=== PATIENT | female | born 1965 | race Caucasian/White ===

== ENCOUNTER → 2016-11-11 | Outpatient (CLI) | payer OTHER ==
--- NOTE | 2016-11-11 16:43 | WWHP ---
DATE OF DICTATION: 11/11/2016 CHIEF COMPLAINT: The patient is here for her routine gynecologic exam. HISTORY OF PRESENT ILLNESS: This is a 51-year-old G1, P1 with an LMP of 10/07/16. She states she is not sexually active. She does have some hot flashes. She is status post lumpectomy and radiation treatment for breast cancer and is now on tamoxifen. She states her hot flashes have become slightly less intense but more frequent with tamoxifen. She is otherwise without complaints. Periods are regular. PAST MEDICAL HISTORY: 1. Left breast cancer diagnosed in 2015, status post lumpectomy and radiation treatment. 2. History of anxiety. 3. Gastroesophageal reflux disease. 4. Rosacea. 5. Anemia. MEDICATIONS: 1. Tamoxifen 20 mg daily. 2. Prevacid 1 daily. 3. MetroCream daily. 4. Black cohosh daily. 5. Ferrous sulfate 325 mg daily. 6. Multivitamin daily. 7. Vitamin D 1000 units daily. 8. Vitamin C supplement daily. ALLERGIES: PENICILLIN and CEPHALOSPORINS, both of which caused hives. PAST SURGICAL HISTORY: 1. Hemorrhoidectomy in 2013. 2. Colonoscopy in 2012. 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 Periods are regular every month. SOCIAL HISTORY: She denies tobacco, alcohol and drug use. She has been since her 20s. She states she is seeing somebody at this time but is not sexually active. 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 FAMILY HISTORY: Unchanged from the 2015 H&P. REVIEW OF SYSTEMS: She has lost about 7 pounds over the last year. She denies respiratory, cardiac or GI problems. PHYSICAL EXAM: Blood pressure 103/62. Height 5 feet 2 inches. Weight 133 pounds. Temperature 97.9. Pulse 65. This is a well-developed, well-nourished white female alert and oriented x3, in no acute distress. HEENT is within normal limits. NECK: Supple without mass or thyromegaly. CHEST AND LUNGS: Clear to auscultation. HEART: Regular rate and rhythm. Breasts are without mass or discharge. The left breast is consistent with a left lumpectomy in the upper aspect of the breast. Axillary exam is negative for adenopathy. BACK: Negative for CVA tenderness. ABDOMEN: Soft, nontender, without palpable masses. PELVIC EXAM: Normal external genitalia. Cervix and vagina appear normal. There is no evidence of prolapse. The uterus is midposition, nongravid size and nontender. There are no palpable adnexal masses or tenderness. Rectovaginal exam is negative for mass or tenderness and is negative for occult blood. EXTREMITIES: Nontender. IMPRESSION: 1. A 51-year-old premenopausal female with history of left breast cancer. 2. Normal gynecologic exam. PLAN: 1. Pap smear was deferred, since she had a normal one less than 2 years ago. 2. Self breast examination was discussed. 3. Mammogram will be due in 02/01, and this is done at [facility] in [place]. She does get her order forms for this from her oncologist. 4. We discussed tamoxifen use and the increased risk for uterine cancer. I have stressed importance of notifying me if she is having abnormal bleeding, including intermenstrual bleeding, menstrual cycles of less than 3 weeks and bleeding after 12 months of amenorrhea. 5. Osteoporosis prevention was discussed. 6. She will return in one year.

== ENCOUNTER → 2018-06-22 | Day surgery (SDC) | payer OTHER ==
[2018-06-22 09:25] VITALS: BP 129/66; PULSE 70; TEMP 97.7; BMI 25.6
--- NOTE | 2018-06-22 10:13 | P.PCN ---
Date of Procedure: 06/22/18 Preoperative Diagnosis: Endometrial cells on Pap smear Postoperative Diagnosis: Same Procedure(s) Performed: Endometrial biopsy Anesthesia: none Surgeon: Garo Goldsmith Estimated Blood Loss (ml): 1 Pathology: other (Endometrial tissue) Condition: stable Disposition: same day Indications for Procedure: This was a 52-year-old perimenopausal female who has been having menses every 1 to 4 months during the past year. Her LMP was February 2018. Her Pap smear done last week was negative, but showed endometrial cells. Because of the endometrial cells, the decision was made to proceed with endometrial biopsy. Operative Findings: The cervix appears normal. The uterus sounded to 8 cm. Small tissue was obtained. Description of Procedure: The endometrial biopsy procedure was described to the patient. All of her questions were answered. The patient was placed in the lithotomy position. Bimanual examination was performed. The uterus is mid-positioned and is non- gravid size. The speculum was inserted and the cervix and vagina were prepped with betadine solution. In Allys Clamp was used to grasp the anterior lip of the cervix. The 3mm endometrial biopsy curette was placed to the fundus without difficulty. The uterus sounded to 8 cm. A [id number] rotating motion was used and a small amount of tissue was obtained. The procedure was repeated once and a small amount of tissue was again obtained. The tissue was sent for pathologic examination. The patient tolerated the procedure well. There were no complications. The post procedure vitals are as follows: blood pressure 135/ 62. pulse 52, temperature 6.4. Post procedure instructions were given to the patient.
--- NOTE | 2018-06-28 12:00 | P.PN ---
Progress Note - Text Progress Note Date: 06/28/18 OUTPATIENT FOLLOW-UP NOTE TEST(S)/RESULTS: endometrial biopsy done on 06/22/2018 was benign with no atypia identified. METHOD OF NOTIFICATION: the patient was notified by phone. PATIENT COMMENTS: the patient understands the results. DIAGNOSIS: endometrial cells on Pap smear with benign endometrial biopsy. Probable perimenopause. DISCUSSION: PLAN: the patient will keep a menstrual calendar. Call if she is having menstrual problems or if bleeding after one year of amenorrhea. She will return in one year and PRN.
== END ==
LOC: WWCWWP 09:02
PROVIDERS: ATTEND Obstetrics & Gynecology
DX: Z53.9 Procedure and treatment not carried out, unspecified reason (principal)
CPT/HCPCS: 88305

== ENCOUNTER → 2019-09-05 | Outpatient (CLI) | payer OTHER ==
[2019-09-05 14:56] VITALS: BP 126/76; PULSE 66; RESP 18; TEMP 98.2; BMI 26.6
--- NOTE | 2019-09-05 15:32 | P.HPOB ---
History of Present Illness H&P Date: 09/05/19 Chief Complaint: The patient is here for her routine gynecologic exam. This is a 54-year-old with an LMP of February 2018. The patient is without gynecologic complaints and denies any postmenopausal bleeding. She continues to take tamoxifen because of her history of breast cancer. Review of Systems The patient has gained 4 pounds over the last year. She denies respiratory, cardiac, or G.I. problems. Past Medical History Past Medical History: Cancer, GERD/Reflux Additional Past Medical History / Comment(s): Left breast cancer status post lumpectomy and radiation treatment in 2016. Rosacea and anemia. 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 History of Any Multi-Drug Resistant Organisms: None Reported Past Surgical History: Breast Surgery Additional Past Surgical History / Comment(s): Left lumpectomy 2015. hemorroidectomy x2. Colonoscopy 2012(next after 10yrs). Past Psychological History: Anxiety Smoking Status: Never smoker Past Alcohol Use History: None Reported Past Drug Use History: None Reported Additional History: She recently a female in 2017. This is her second marriage. 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 - Past Family History Father Family Medical History: Myocardial Infarction ([place]) Mother Family Medical History: Cancer Additional Family Medical History / Comment(s): Lung cancer. Maternal grandmother had diabetes Brother(s) Family Medical History: Myocardial Infarction ([place]) Medications and Allergies Home Medications Medication Instructions Recorded Confirmed Type Lansoprazole [Prevacid] 30 mg PO DAILY 06/07/18 09/05/19 History Multivitamin [Multivitamins Adult 1 tab PO DAILY 06/07/18 09/05/19 History Gummies] Tamoxifen [Nolvadex] 10 mg PO DAILY 06/07/18 09/05/19 History metroNIDAZOLE 0.75% CREAM 1 applic TOPICAL DAILY 09/05/19 09/05/19 History [Metrocream] Allergies Allergy/AdvReac Type Severity Reaction Status Date / Time cephalexin Allergy Rash/Hives Verified 09/05/19 14:50 Penicillins Allergy Rash/Hives Verified 09/05/19 14:50 Exam Vital Signs Temp Pulse Resp BP Pulse Ox 09/05/19 14:53 98.2 F 66 18 126/76 98 Intake and Output 09/05/19 09/05/1919 06:59 14:59 22:59 Other: Weight 66.224 kg Height 5 feet 2 inches, weight 146 pounds, BMI 26.7. This is a well-developed well-nourished white female who is alert and oriented times 3 in no acute distress. HEENT: Within normal limits. NECK: Supple without mass or thyromegaly. CHEST AND LUNGS: Clear to auscultation. HEART: Regular rate and rhythm. BREASTS: Are without mass or discharge. Left breast is consistent with previous lumpectomy in the upper breast. AXILLARY EXAM: Negative for adenopathy. BACK: Negative for CVA tenderness. ABDOMEN: Soft, nontender, without palpable masses. PELVIC EXAM: Normal external genitalia with minimal atrophy. Cervix and vagina appear normal minimal atrophy. There is no unusual discharge. There is no evidence of prolapse. The uterus is midposition, nongravid size and nontender. There are no palpable adnexal masses or tenderness. RECTAL EXAM: Rectovaginal exam is negative for mass or tenderness and is negative for occult blood. EXTREMITIES: Nontender. IMPRESSION: 1. 54-year-old menopausal female with normal gynecologic exam. 2. History of left breast cancer status post lumpectomy and radiation treatment with no evidence of recurrence at this time. PLAN: 1. Pap smear was deferred since she had a negative Pap smear on 06/07/2018. 2. Self breast awareness was discussed with the patient. 3. Mammograms will be done at [facility] as she has done in the past. Her last one was in February of this year. She states she is not doing them yearly . She will try to have her previous mammogram report sent to me. I have also requested that she have copies of her future mammograms sent to me as well. 4. We discussed how tamoxifen and can slightly increase the risk for endometrial cancer. She was instructed to call if she has any vaginal bleeding. 5. Osteoporosis prevention was discussed. I have stressed the importance of adequate calcium, vitamin D and regular exercise. Recommended amounts of calcium and vitamin D were also discussed. 6. She was advised to return in one year for her annual well woman exam.
== END ==
LOC: WWCWWP 14:24
PROVIDERS: ATTEND Obstetrics & Gynecology
DX: Z53.9 Procedure and treatment not carried out, unspecified reason (principal)

== ENCOUNTER 2021-04-08 09:30 | Day surgery (SDC) | payer OTHER ==
[2021-04-04 10:00] VITALS: BMI 26.5
[~2021-04-08 09:30] MED LIST: LACTATED RINGERS 1,000 ML IV SCH
[2021-04-08] MEDS ORDERED: LIDOCAINE 1% (10MG/ML) FOR IV START INTRADERMA ONE (09:50)
[2021-04-08] MEDS ORDERED: MIDAZOLAM 2 MG/2 ML VIAL ONE (09:55)
[2021-04-08] MEDS ORDERED: PROPOFOL 10 MG/ML 20 ML VIAL IV ONE (09:55)
[2021-04-08] MEDS ORDERED: fentaNYL (PF) 50 MCG/ML 2 ML AMP ONE (09:55)
[2021-04-08] MEDS ORDERED: LIDOCAINE 1% INJ 10MG/ML (20 ML MDV) ONE (09:55)
[2021-04-08 09:57] VITALS: RESP 16; TEMP 98.4
--- NOTE | 2021-04-08 10:18 | P.PCN ---
Date of Procedure: 04/08/21 Description of Procedure: BRIEF HISTORY: Patient is a 55-year-old female presenting for esophagogastroduodenoscopy for evaluation of dysphagia. Patient reports both solid food and liquid dysphagia occurring intermittently. She also reports coughing with laughing. She reports a long-standing history of reflux disease is on Prevacid. She denies any breakthrough symptoms reports she will have reflux if she misses doses of her medication. PROCEDURE PERFORMED: Esophagogastroduodenoscopy with biopsy. PREOPERATIVE DIAGNOSIS: Dysphagia, esophageal dysphagia, heartburn. ESTIMATED BLOOD LOSS: Minimal. IV sedation per anesthesia. PROCEDURE: After informed consent was obtained, the patient was brought into the endoscopy unit. IV sedation was administered by Anesthesia under continuous monitoring. Initially the Olympus GIF-190 video endoscope was inserted into the mouth. Esophagus intubated without any difficulty. It was gradually advanced into the stomach and duodenum and carefully examined. The bulb and the second part of the duodenum appeared normal, with biopsies taken. The scope at this time was withdrawn to the stomach, adequately insufflated with air, and upon careful examination, mucosa of the antrum, body, cardia and the fundus appeared normal, except for some mild scattered erythema in the antrum and body suggestive of mild gastritis of biopsies taken. There were also multiple gastric polyps in the body of the stomach which appeared to be fundic gland polyps which were biopsied. The scope was then withdrawn into the esophagus. The GE junction was located at 36 cm from the incisors. The esophagus appeared normal, with biopsies taken of the lower esophagus and midesophagus. There were no erosions or ulcerations seen and the patient tolerated the procedure well. IMPRESSION: 1. Mild gastritis. 2. Multiple gastric polyps (appeared to be fundic gland polyps). 3. No esophageal stricture, ulceration or other abnormalities noted. 4. Biopsies of the duodenum, antrum and body, gastric polyps, lower esophagus and midesophagus. RECOMMENDATIONS: The findings of this examination were discussed with the patient and her family. Okay to resume diet. Okay to resume medications. Await pathology from biopsies. Continue current medical management.
[2021-04-08 10:29] VITALS: PULSE 66
[2021-04-08 10:48] VITALS: BP 113/76
== END 2021-04-08 11:01 | disposition home or self-care (01) ==
LOC: ORWHC2ENDO 09:30
PROVIDERS: ATTEND Internal Medicine
DX: D72.820 Lymphocytosis (symptomatic) (principal); K29.50 Unspecified chronic gastritis without bleeding; K31.7 Polyp of stomach and duodenum; R13.14 Dysphagia, pharyngoesophageal phase; K21.9 Gastro-esophageal reflux disease without esophagitis; Z98.890 Other specified postprocedural states; Z85.3 Personal history of malignant neoplasm of breast; Z79.899 Other long term (current) drug therapy; Z88.1 Allergy status to other antibiotic agents; Z88.0 Allergy status to penicillin
CPT/HCPCS: 88305; 43239; J2250; J2001; J3010; J2704

== ENCOUNTER → 2021-04-22 | Outpatient (CLI) | payer OTHER ==
[2021-04-22 16:01] VITALS: BP 123/81; PULSE 89; RESP 18; TEMP 98.2
--- NOTE | 2021-04-22 17:05 | P.HPOB ---
History of Present Illness H&P Date: 04/22/21 Chief Complaint: The patient is here for her routine gynecologic exam. This is a 55-year-old with an LMP of October 2019. The patient denies any postmenopausal bleeding. She has recently discontinued tamoxifen after 5 years of use for breast cancer. She does have mild hot flashes which are not very bothersome. Review of Systems The patient has gained 10 pounds over the last 1-1/2 years. She denies respiratory, cardiac, or G.I. problems. Past Medical History Past Medical History: Cancer, GERD/Reflux Additional Past Medical History / Comment(s): Left breast cancer status post lumpectomy and radiation treatment in 2016. Rosacea and anemia. 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 History of Any Multi-Drug Resistant Organisms: None Reported Past Surgical History: Breast Surgery Additional Past Surgical History / Comment(s): Left lumpectomy 2015. hemorroidectomy x2. Colonoscopy 2012(next after 10yrs). Upper Endoscopy. Past Anesthesia/Blood Transfusion Reactions: No Reported Reaction Past Psychological History: Anxiety Smoking Status: Never smoker Past Alcohol Use History: None Reported Past Drug Use History: None Reported Additional History: She is to her female spouse since 2017 and this is her second marriage. 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 - Past Family History Father Family Medical History: Myocardial Infarction ([place]) Mother Family Medical History: Cancer Additional Family Medical History / Comment(s): Lung cancer. Maternal grandmother had diabetes Brother(s) Family Medical History: Myocardial Infarction ([place]) Medications and Allergies Home Medications Medication Instructions Recorded Confirmed Type Lansoprazole [Prevacid] 30 mg PO DAILY 06/07/18 04/22/21 History metroNIDAZOLE 0.75% CREAM 1 applic TOPICAL DAILY 09/05/19 04/22/21 History [Metrocream] Allergies Allergy/AdvReac Type Severity Reaction Status Date / Time cephalexin Allergy Rash/Hives Verified 04/22/21 15:57 clindamycin Allergy Rash/Hives Unverified 04/22/21 15:57 levofloxacin [From Levaquin] Allergy Rash/Hives Verified 04/22/21 15:57 Penicillins Allergy Rash/Hives Verified 04/22/21 15:57 Exam Vital Signs Temp Pulse Resp BP Pulse Ox 04/22/21 15:58 98.2 F 89 18 123/81 97 Intake and Output 04/22/21 04/22/21 04/22/21 06:59 14:59 22:59 Other: Weight 70.76 kg Height 5 feet 2 inches, weight 156 pounds, BMI 28.5. This is a well-developed well-nourished white female who is alert and oriented times 3 in no acute distress. HEENT: Within normal limits. NECK: Supple without mass or thyromegaly. CHEST AND LUNGS: Clear to auscultation. HEART: Regular rate and rhythm. BREASTS: Are without mass or discharge. The upper left breast is consistent with previous lumpectomy. AXILLARY EXAM: Negative for adenopathy. BACK: Negative for CVA tenderness. ABDOMEN: Soft, nontender, without palpable masses. PELVIC EXAM: Normal external genitalia with mild atrophy. Cervix and vagina appear normal mild atrophy. There is no unusual discharge. There is no evidence of prolapse. The uterus is midposition, nongravid size and nontender. There are no palpable adnexal masses or tenderness. RECTAL EXAM: Rectovaginal exam is negative for mass or tenderness and is negative for occult blood. EXTREMITIES: Nontender. IMPRESSION: 1. 55-year-old postmenopausal female with normal gynecologic exam. 2. History of left breast cancer status post lumpectomy and radiation treatment with no evidence of recurrence at this time. PLAN: 1. Pap smear cotest was performed. 2. Self breast awareness was discussed with the patient. 3. Mammogram was done at [facility] in [place] in March 2021 and was was benign per the patient. She is considering starting to do the mammograms at this hospital. 4. Osteoporosis prevention was discussed. I have stressed the importance of adequate calcium, vitamin D and regular exercise. Recommended amounts of calcium and vitamin D were also discussed. 5. She was advised to return in one year for her annual well woman exam.
== END ==
LOC: WWCWWP 15:50
PROVIDERS: ATTEND Obstetrics & Gynecology
DX: Z01.419 Encounter for gynecological examination (general) (routine) without abnormal findings (principal); Z85.3 Personal history of malignant neoplasm of breast; Z98.890 Other specified postprocedural states; F41.9 Anxiety disorder, unspecified; Z92.3 Personal history of irradiation; Z88.1 Allergy status to other antibiotic agents; Z83.3 Family history of diabetes mellitus

== ENCOUNTER → 2021-07-02 | Outpatient (CLI) | payer OTHER ==
[2021-07-02 11:11] VITALS: BP 131/76; PULSE 52; RESP 16; TEMP 98.1
--- NOTE | 2021-07-02 12:07 | P.PN ---
Progress Note - Text Progress Note Date: 07/02/21 Chief Complaint: Vaginal bleeding 2 days. HPI: This is a 55-year-old with an LNMP of October 2019. She had been on tamoxifen for breast cancer for 5 years and this was discontinued about 6 months ago. She had a previous endometrial biopsy on 06/22/2018 following some endometrial cells on her Pap smear and this was benign. Two days ago, she noticed blood in her underwear and in the toilet after urinating. Since then she has been having period-like bleeding which requires a pad and she has been changing her pad about every 2 hours. She has had some cramping which she typically would get when her bladder is full in the middle of the night, but she has been noticing it now when her bladder gets full during the day. ROS: : As above. She has been having some cramping when her bladder gets full and she has been noticing this more often during the past 2 days. She denies ot her urinary tract infection symptoms. The rest of the review of systems is unremarkable. PE: Blood pressure: 131/76, Height: 5 feet 2 inches, Weight: 154 pounds, Temperature: 98.1, Pulse: 52. Pulse oximeter 100%. This is a well developed, well nourished, white female who is alert and orientedx3, in no acute distress. External genitalia reveals dried blood. The vulva appears mildly atrophic w ithout lesions. Vagina: There is menstrual type blood in the vagina. The cervix appears normal. There are no lacerations noted. There is no cervical motion tenderness. The uterus is mid positioned, nongravid size, and nontender. There are no palpable adnexal masses or tenderness. See procedure note. Impression: 1. 55-year-old postmenopausal female with postmenopausal vaginal bleeding. Thi s may or may not be related to the tamoxifen use which she used for 5 years up until 6 months ago. Differential diagnosis will include benign proliferative lining, uterine polyp, endometrial hyperplasia with or without atypia as well as endometrial cancer. Plan: 1. Endometrial biopsy was performed today. 2. Consider referral if cancer or hyperplasia with atypia, or if persistent or recurrent bleeding. Time spent with the patient: 30 minutes
--- NOTE | 2021-07-02 12:12 | P.PCN ---
Date of Procedure: 07/02/21 Preoperative Diagnosis: Puzzle bleeding. Postoperative Diagnosis: Postmenopausal bleeding Procedure(s) Performed: Endometrial biopsy Anesthesia: none Surgeon: Garo Goldsmith Estimated Blood Loss (ml): 1 Pathology: other (Endometrial tissue) Condition: stable Disposition: same day Indications for Procedure: This was a 55-year-old menopausal female with LMP of October 2019. The patient developed vaginal bleeding 2 days ago and has had menstrual-like bleeding since then. See today's progress note for additional details. Operative Findings: The uterus sounded to 8 cm. Small to moderate amount of bloody tissue was obtained and sent for pathological examination. Description of Procedure: The endometrial biopsy procedure was described to the patient. All of her questions were answered. The patient was placed in the lithotomy position. Bimanual examination was performed. The uterus is mid positioned and is gravid size. The speculum was inserted and the cervix and vagina were prepped with betadine solution. An Allis clamp was used to grasp the anterior lip of the cervix. The 3mm endometrial biopsy curette was placed to the fundus without difficulty. The uterus sounded to 8 cm. Negative pressure was applied. A b [id number] rotating motion was used and a small to moderate amount of tissue was obtained and sent for pathological examination. The patient tolerated the procedure well. There were no complications. The post procedure vitals are as follows: blood pressure 143/86. pulse 60, pulse oximeter 100%. Post procedure instructions were given to the patient. The patient was instructed to call if she has heavy bleeding, unusual pain, fever, or problems. If severe problems, she can go in through the emergency room to be seen. Estimated blood loss 1 mL. Specimens sent included endometrial tissue.
[2021-07-02 14:40] LABS: Appearance,Urine Clear (Clear); Bacteria,Urine Occasional /hpf; Bilirubin,Urine Negative (Negative); Blood,Urine Large (Negative); Color,Urine Light Yellow; Glucose,Urine (UA) Negative (Negative); Ketones,Urine Negative (Negative); Leukocyte Esterase,Urine Negative (Negative); Nitrite,Urine Negative (Negative); PH, Urine 6.5 (5.0-8.0); Protein,Urine Negative (Negative); RBC,Urine 11 /hpf (0-5); Specific Gravity,Urine 1.005 (1.001-1.035); Squamous Epithelial Cell,Urine <1 /hpf (0-4); Urobilinogen,Urine <2.0 mg/dL (<2.0); WBC,Urine 1 /hpf (0-5)
--- NOTE | 2021-07-04 13:35 | P.PN ---
Progress Note - Text Progress Note Date: 07/04/21 Test results from 07/02/21 include endometrial biopsy showing weakly proliferative features with breakdown/bleeding features. UA showed RBCs without significant WBC or leukocyte esterase. Urine culture grew some skin/vaginal milo. The patient was notified by phone. She states her bleeding is now minimal, like the very end of a period. No problems after the endometrial biopsy. Impression: Episode of PMB which seems to be now resolving, with benign endometrial biopsy. This may have been from the 5 years use of Tamoxifen, which can work as a weak estrogen on the endometrium. She has discontinued Tomoxifen this year. Plan: She was instructed to call or if she has recurrence of vaginal bleeding. If recurrence of bleeding, then she will be referred for H/S D&C.
== END ==
LOC: WWCWWP 10:27
PROVIDERS: ATTEND Obstetrics & Gynecology
DX: N95.0 Postmenopausal bleeding (principal); Z88.1 Allergy status to other antibiotic agents; Z88.0 Allergy status to penicillin
CPT/HCPCS: 81001; 87086; 88305

== ENCOUNTER → 2021-08-05 | Outpatient (CLI) | payer OTHER ==
[2021-08-05 12:57] VITALS: BP 128/74; PULSE 72; RESP 16; TEMP 98
--- NOTE | 2021-08-05 13:47 | P.PN ---
Progress Note - Text Progress Note Date: 08/05/21 Chief Complaint: Recurrent period like bleeding from the vagina. HPI: This is a 55-year-old with an LNMP of October 2019. The patient was on tamoxifen for breast cancer up until October 2020. She had been on tamoxifen for 4-1/2 years but had requested to discontinue it before the 5 year point because she was planning on going back to work in person this year. The patient had no menstrual periods from October 2019 until June 2021, when she did develop period like bleeding. Endometrial biopsy was done on 07/02/2021 and showed weakly proliferative lining. She states now she no longer has hot flashes, which she was experiencing before last month. Her bleeding started on July 24 and lasted 3 days with flow similar to a menstrual period. She states it felt like a menstrual period with menstrual-like cramping. PE: Blood pressure: 128/74, Height: 5 feet 2-1/2 inches, Weight: 155 pounds, Temperature: 98.0, Pulse: 72. This is a well developed, well nourished, white female who is alert and orientedx3, in no acute distress. Impression: 1. 55-year-old female with recurrent postmenopausal bleeding. Her situation may be different then the more typical postmenopausal bleeding scenario. Being that she had been taking tamoxifen for breast cancer until October 2020, this may have led to many months of amenorrhea and there may still have been some ovarian function which may have come back after the tamoxifen was discontinued. Her 2 bleeding episodes were 27 days apart and felt like menstrual flow. 2. Benign endometrial biopsy on 07/02/2021. Plan: 1. We have discussed her situation and options including hysteroscopy with D&C. 2. We will start by checking an estradiol and FSH level. If this is consistent with a fully postmenopausal female, she will be referred for hysteroscopy and D&C for recurrent postmenopausal vaginal bleeding. If these levels are in the premenopausal range, we will discuss this with her oncologist to determine if this is a concern regarding her history of breast cancer. We will see if this would be an indication to resume tamoxifen, or to have the ovaries surgically removed. Time spent with the patient: 25 minutes
[2021-08-06 05:36] LABS: Follicle Stimulating Hormone 14.6 mIU/mL
--- NOTE | 2021-08-06 19:58 | P.PN ---
Progress Note - Text Progress Note Date: 08/06/21 Blood tests drawn on 08/05/21 include estradiol 136 (menopause range 0-21) and FSH 14.6. These levels are in the premenopausal range. The patient was notified by phone. She has had 2 menstrual like bleeding episodes about 27 days apart. Endometrial biopsy was benign. Impression: possible return of ovarian function after discontinuation of Tamoxifen. Plan: She will keep a menstrual/bleeding calendar. She will call if worsening of bleeding or bleeding unlike menstrual flow. She will discuss the hormone levels with her oncologist to see if he/she has any recommendations such as resuming a medication, such as Tamoxifen.
== END ==
LOC: WWCWWP 12:44
PROVIDERS: ATTEND Obstetrics & Gynecology
DX: N95.0 Postmenopausal bleeding (principal); Z88.1 Allergy status to other antibiotic agents; Z88.0 Allergy status to penicillin
CPT/HCPCS: 82670; 83001

== ENCOUNTER → 2022-03-18 | Outpatient (CLI) | payer OTHER ==
--- NOTE | 2022-03-18 13:00 | CA ---
Exercise Stress Test Report Name: Renata Young Exam Date: 03/18/2022 11:25 Exam Location: [facility] Ht (in): 62 Wt (lb): 150 BSA: 1.69 Ordering Phys: Eliazar Ibarra DO Referring Phys: Phuong Arrieta PAC Technologist: Jalil Leach Age: 56 Gender: F : 1965 Procedure CPT: Indications: R07.9 E78.2 ICD-10 Codes: Patient History: CHEST PAIN, FAMILY HISTORY OF HEART DISEASE Medications: PREVACID, FISH OIL Meds past 24 hrs: Pretest Chest Pain: STRESS TEST Raul Protocol Exercise Duration (min:sec): 10:[address] Depressions (mm): Angina Score: Alfonso Score: Resting HR (bpm): 78 Peak HR (bpm): 162 Resting BP (mmHg): 128 / 88 Peak BP (mmHg): 169 / 91 MPHR: 164 Target HR: 139 % MPHR: 99 METS: 12.1 Total Dose: Peak Dose: Atropine: Double Product: 92914 BP Response: Stress Termination: TARGET HR REACHED/MAX EXERTION Stress Symptoms: NO SYMPTOMS Stress Summary: ECG ANALYSIS Resting ECG: Stress ECG: CONCLUSIONS Patient underwent exercise stress EKG with a Raul protocol treadmill stress test. Patient exercised into Stage 3 for a total of 10 minutes and 14 seconds reaching a total of 12.1 METS. Patient's maximum heart rate was 162 which represented 98 % age-predicted maximum heart rate. Stress EKG findings: At baseline patient's EKG showed normal sinus rhythm, normal axis, no significant ST-T wave abnormalities. At peak exercise, EKG showed minimal 0.[address] depressions in the lateral leads which is nondiagnostic. Conclusions: 1. Normal EKG response to exercise without evidence of inducible ischemia. 2. Excellent exercise capacity. Dr. Jeff James DO (Electronically Signed) Final Date: 18 March 2022 12:59
== END | disposition home or self-care (01) ==
LOC: RADNMMAIN 10:41
PROVIDERS: ATTEND Family Medicine
DX: R07.9 Chest pain, unspecified (principal); E78.2 Mixed hyperlipidemia
CPT/HCPCS: 93017

== ENCOUNTER → 2022-04-10 | Outpatient (CLI) | payer OTHER ==
--- NOTE | 2022-04-13 13:09 | MM ---
Reason for Exam: Additional evaluation requested from prior study. Last screening mammogram was performed 12 month(s) ago. Patient History: Menarche at age 16. First Full-Term at age 25. Postmenopausal. Breast cancer, left, age 51. Previous chest radiation therapy at age 51. Hormonal Contraceptives, starting at age 20 for 2 years. 01/15/2016, MG pre op needle loc LT - 2 on the Left side. 12/30/2015, High risk Core Biopsy on the left side. 12/30/2015, MG discontinued stereo core LT on the left side. Last menstrual period: 10/18/2020 Prior Study Comparison: 10/07/2012 Screening Mammogram, [facility]. 01/17/2014 Screening Mammogram, [facility]. 12/30/2015 Left Diagnostic Mammogram, [facility]. 02/01/2017 Bilateral MG 3D diag mammo wo cad [facility], Unknown. 08/02/2017 Left MG diagnostic mammo LT w CAD - 2, Unknown. 02/10/2018 Bilateral MG 3D diag mammo wo cad [facility], Unknown. 02/23/2019 Bilateral MG 3D screening mammo w/cad, [facility]. 04/04/2020 Bilateral MG 3D screening mammo w/cad, [facility]. 04/07/2021 Bilateral MG 3D screening mammo w/cad, [facility]. Tissue Density: The breast tissue is heterogeneously dense. This may lower the sensitivity of mammography. Findings: Analyzed By CAD. Postsurgical clips are within the left 12:00 positions while the axillary region. No suspicious groups of microcalcifications, spiculated or lobular masses, architectural distortion or other secondary signs of malignancy are mammographically apparent. Overall Assessment: Benign, BI-RAD 2 Management: Screening Mammogram of both breasts in 1 year. A negative mammogram report should not preclude additional follow up of suspicious palpable abnormalities. Patient should continue monthly self breast exam. A clinical breast exam by your physician is recommended on an annual basis and results should be correlated with mammographic findings. Electronically signed and approved by: Ritesh Mendez D.O. Radiologis
== END | disposition home or self-care (01) ==
LOC: RADMAMWWP 14:18
PROVIDERS: ATTEND Family Medicine
DX: R92.8 Other abnormal and inconclusive findings on diagnostic imaging of breast (principal); Z78.0 Asymptomatic menopausal state; Z85.3 Personal history of malignant neoplasm of breast
CPT/HCPCS: 77062; 77066

== ENCOUNTER 2022-08-25 08:25 | Day surgery (SDC) | payer OTHER ==
[2022-08-21 12:59] VITALS: BMI 27.4
[2022-08-25] MEDS ORDERED: LIDOCAINE 1% (10MG/ML) FOR IV START INTRADERMA PRN (09:21)
[2022-08-25] MEDS ORDERED: LACTATED RINGERS 1,000 ML IV SCH (09:21)
[2022-08-25 09:38] VITALS: RESP 16; TEMP 97.3
[2022-08-25] MEDS ORDERED: LIDOCAINE 2% INJ 20 MG/ML (2 ML VIAL) ONE (09:51)
[2022-08-25] MEDS ORDERED: PROPOFOL 10 MG/ML 20 ML VIAL IV ONE (09:51)
--- NOTE | 2022-08-25 10:00 | P.GSHP ---
History of Present Illness H&P Date: 08/25/22 Chief Complaint: Colon cancer screening 56 row female here today for colon cancer screening. Last colonoscopy 2013. No bowel complaints. No family history of colon cancer. Past Medical History Past Medical History: Cancer, GERD/Reflux Additional Past Medical History / Comment(s): Left breast cancer with lumpectomy and radiation treatment in 2016. .,Rosacea, hx anemia. History of Any Multi-Drug Resistant Organisms: None Reported Past Surgical History: Breast Surgery Additional Past Surgical History / Comment(s): Left lumpectomy 2016. hemorroidectomy x2. Colonoscopy, EGD Past Anesthesia/Blood Transfusion Reactions: No Reported Reaction, Motion Sickness Past Psychological History: No Psychological Hx Reported Smoking Status: Never smoker Past Alcohol Use History: None Reported Past Drug Use History: None Reported - Past Family History Father Family Medical History: Myocardial Infarction ([place]) Mother Family Medical History: Cancer Additional Family Medical History / Comment(s): Lung cancer. Brother(s) Family Medical History: Cancer, Myocardial Infarction ([place]) Additional Family Medical History / Comment(s): leukemia Medications and Allergies Home Medications Medication Instructions Recorded Confirmed Type Lansoprazole [Prevacid] 30 mg PO DAILY 06/07/18 08/25/22 History metroNIDAZOLE 0.75% CREAM 1 applic TOPICAL DIRECTED 09/05/19 08/25/22 History [Metrocream 0.75%] Allergies Allergy/AdvReac Type Severity Reaction Status Date / Time cephalexin Allergy Rash/Hives Verified 08/25/22 09:22 clindamycin Allergy Rash/Hives Verified 08/25/22 09:22 levofloxacin [From Levaquin] Allergy Rash/Hives Verified 08/25/22 09:22 Penicillins Allergy Rash/Hives Verified 08/25/22 09:22 Surgical - Exam Vital Signs Temp Pulse Resp BP Pulse Ox 97.3 F L 70 16 130/74 95 08/25/22 09:36 08/25/22 09:36 08/25/22 09:36 08/25/22 09:36 08/25/22 09:36 Physical exam: General: Well-developed, well-nourished HEENT: Normocephalic, sclerae nonicteric Abdomen: Nontender, nondistended Extremities: No edema Neuro: Alert and oriented Assessment and Plan (1) Colon cancer screening Narrative/Plan: Will proceed with colonoscopy at this time. Current Visit: Yes Status: Acute Code(s): Z12.11 - ENCOUNTER FOR SCREENING FOR MALIGNANT NEOPLASM OF COLON SNOMED Code(s): 753051365
--- NOTE | 2022-08-25 10:11 | P.PCN ---
Date of Procedure: 08/25/22 Procedure(s) Performed: PREOPERATIVE DIAGNOSIS: Colon cancer screening POSTOPERATIVE DIAGNOSIS: Mild diverticulosis PROCEDURE: Colonoscopy ANESTHESIA: MAC SURGEON: Arpit Justice M.D. SPECIMENS: None ENDOSCOPIC PROCEDURE: The patient was placed on the endoscopy table in the left decubitus position. The Olympus colonoscope was inserted into the anus and passed under direct visualization to the base of the cecum. The appendiceal orifice was visualized. From that point the scope was slowly withdrawn inspecting all surfaces carefully. There were no neoplastic inflammatory or polypoid lesions throughout the cecum, ascending, transverse, descending, sigmoid and rectum. There was mild left-sided diverticulosis noted. Digital rectal examination was normal. The patient was taken to the recovery room in stable condition per anesthesia guidelines. RECOMMENDATIONS: Resume diet. Follow-up colonoscopy 10 years.
[2022-08-25 10:32] VITALS: BP 113/77; PULSE 66
== END 2022-08-25 11:02 | disposition home or self-care (01) ==
LOC: ORWHC2ENDO 08:25
PROVIDERS: ATTEND Surgery
DX: Z12.11 Encounter for screening for malignant neoplasm of colon (principal); K57.30 Diverticulosis of large intestine without perforation or abscess without bleeding; K21.9 Gastro-esophageal reflux disease without esophagitis; Z85.3 Personal history of malignant neoplasm of breast; Z98.82 Breast implant status; Z80.1 Family history of malignant neoplasm of trachea, bronchus and lung; Z82.49 Family history of ischemic heart disease and other diseases of the circulatory system; Z80.6 Family history of leukemia; Z79.899 Other long term (current) drug therapy; Z88.0 Allergy status to penicillin; Z88.1 Allergy status to other antibiotic agents
CPT/HCPCS: 81025; 45378; J2704; J2001

== ENCOUNTER → 2022-08-25 | Outpatient (CLI) | payer OTHER ==
[2022-08-25 14:42] LABS: ALT 29 U/L (8-44); AST 35 U/L (13-35); Albumin 4.5 g/dL (3.8-4.9); Albumin/Globulin Ratio 1.45 (1.60-3.17); Alkaline Phosphatase 117 U/L (41-126); BUN/Creat Ratio 13.79 Ratio (12.00-20.00); Blood Urea Nitrogen 12.4 mg/dL (9.0-27.0); Calcium 9.3 mg/dL (8.7-10.3); Carbon Dioxide 25.6 mmol/L (20.0-27.5); Chloride 103 mmol/L (96-109); Chol/HDL Ratio 4.33 Ratio; Globulin 3.1 g/dL (1.6-3.3); Glucose 90 mg/dL (70-110); LDL Cholesterol,Calculated 172.4 mg/dL (0.0-131.0); Non-African American GFR(CKD) 71.6 (60.0-200.0); Potassium 4.4 mmol/L (3.5-5.5); Sodium 141 mmol/L (135-145); Total Protein 7.6 g/dL (6.2-8.2); VLDL Calculation 17.52 mg/dL (5.00-40.00)
== END | disposition home or self-care (01) ==
LOC: LABWHC1 08:40
PROVIDERS: ATTEND Physician Assistant Medical
DX: C50.919 Malignant neoplasm of unspecified site of unspecified female breast (principal); E78.2 Mixed hyperlipidemia; K31.7 Polyp of stomach and duodenum
CPT/HCPCS: 36415; 80053; 80061

== ENCOUNTER → 2023-05-04 | Outpatient (CLI) | payer OTHER ==
[2023-05-04 12:54] VITALS: BP 119/76; PULSE 68; RESP 16; TEMP 98.3
--- NOTE | 2023-05-04 13:55 | P.HPOB ---
History of Present Illness H&P Date: 05/04/23 Chief Complaint: The patient is here for her routine gynecologic exam and ma mmogram. This is a 57-year-old with an LNMP of 2019. She was amenorrheic for more than one year between 2019 and 2020 after discontinuing tamoxifen, she started having small bleeding episodes and underwent an endometrial biopsy which showed weakly proliferative endometrium. Blood testing on 08/05/2021 showed an FSH of 14.6 and an estradiol level in the non-menopausal range. She states she still has monthly episodes of the small amount of discharge which is slightly brownish. She also has menstrual type cramps around that time. These episodes seem to correspond with her daughters regular menstrual periods. She does not have to use any protection since the discharge is so scant. She denies genital itching or odor. Review of Systems She has gained about 3 pounds over the past 2 years. Respiratory: She states she can get slightly short of breath upon exertion and has discussed this with her PCP. She denies cardiac or GI problems. Past Medical History Past Medical History: Cancer, GERD/Reflux Additional Past Medical History / Comment(s): Left breast cancer with lumpectomy and radiation treatment in 2016.,Rosacea, hx anemia. 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 History of Any Multi-Drug Resistant Organisms: None Reported Past Surgical History: Breast Surgery Additional Past Surgical History / Comment(s): Left lumpectomy 2015. hemorroidectomy x2. Colonoscopy 2021( next after 10yr), EGD Past Anesthesia/Blood Transfusion Reactions: No Reported Reaction, Motion Sickness Past Psychological History: No Psychological Hx Reported Smoking Status: Never smoker Past Alcohol Use History: None Reported Past Drug Use History: None Reported Additional History: She is to her female since 2018. This is her second marriage. 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 - Past Family History Father Family Medical History: Myocardial Infarction ([place]) Mother Family Medical History: Cancer Additional Family Medical History / Comment(s): Lung cancer. Brother(s) Family Medical History: Cancer, Myocardial Infarction ([place]) Additional Family Medical History / Comment(s): leukemia Medications and Allergies Home Medications Medication Instructions Recorded Confirmed Type Lansoprazole [Prevacid] 30 mg PO DAILY 06/07/18 05/04/23 History metroNIDAZOLE 0.75% CREAM 1 applic TOPICAL DIRECTED 09/05/19 05/04/23 History [Metrocream 0.75%] Rosuvastatin [Crestor] 10 mg PO DAILY 05/04/23 05/04/23 History Allergies Allergy/AdvReac Type Severity Reaction Status Date / Time cephalexin Allergy Rash/Hives Verified 05/04/23 12:52 clindamycin Allergy Rash/Hives Verified 05/04/23 12:52 levofloxacin [From Levaquin] Allergy Rash/Hives Verified 05/04/23 12:52 Penicillins Allergy Rash/Hives Verified 05/04/23 12:52 Exam Vital Signs Temp Pulse Resp BP Pulse Ox 05/04/23 12:52 98.3 F 68 16 119/76 97 Intake and Output 05/03/23 05/04/23 05/04/23 22:59 06:59 14:59 Other: Weight 71.668 kg Height 5 feet 2 inches, weight 158 pounds, BMI 28.9. This is a well-developed well-nourished white female who is alert and oriented times 3 in no acute distress. HEENT: Within normal limits. NECK: Supple without mass or thyromegaly. CHEST AND LUNGS: Clear to auscultation. HEART: Regular rate and rhythm. BREASTS: Are without mass or discharge. There is a slight dimpled area in the left breast consistent with her previous lumpectomy. AXILLARY EXAM: Negative for adenopathy. BACK: Negative for CVA tenderness. ABDOMEN: Soft, with a palpable mass in the right lower quadrant. There is a fairly firm mass measuring approximately 5 x 5 cm and is minimally tender. This seems somewhat mobile. The patient states she has noticed a slight increase in the abdominal size and her clothes seem to fit tighter, but she attributed this to some weight gain. PELVIC EXAM: Normal external genitalia with mild atrophy. Cervix and vagina appear normal with mild atrophy. There is no unusual discharge. There is no evidence of blood or abnormal discharge. There is no evidence of prolapse. The uterus is midposition, and it is difficult to determine the exact upper limit of the uterus. This may be a small uterus, but I am unable to determine if the right lower quadrant masses heart of the uterus. There are no palpable adnexal masses or tenderness. RECTAL EXAM: Rectovaginal exam is negative for mass or tenderness and is negative for occult blood. EXTREMITIES: Nontender. IMPRESSION: 1. 57-year-old perimenopausal female with monthly menstrual cramping and minimal brownish discharge. Differential diagnosis will include postmenopausal uterine bleeding, cyclic light menstrual bleeding with ovarian function, or other physiologic discharge. There are no significant physical findings in the vagina at this time. She states the discharge is so light that she does not require any protection. 2. Right lower quadrant mass. Differential diagnosis will include fibroid uterus, ovarian mass, and non-gynecologic mass. 3. History of left breast cancer status post lumpectomy, radiation therapy, and 5 years of tamoxifen. No evidence of recurrence on exam. PLAN: 1. Pap smear was deferred since she had a negative Pap smear cotest on 04/22/2021. 2. Self breast awareness was discussed with the patient. We have also discussed symptoms associated with inflammatory breast cancer. 3. Mammogram will be done today. 4. Pelvic ultrasound was recommended. This will be used to check for uterine fibroids, check endometrial thickness as well as to rule out ovarian and adnexal masses. If this is unremarkable, we will consider proceeding with CT scan of the abdomen and pelvis for further evaluation of the right lower quadrant mass. The order slip was given to the patient. 5. Osteoporosis prevention was discussed. I have stressed the importance of adequate calcium, vitamin D and regular exercise. Recommended amounts of calcium and vitamin D were also discussed. We will plan on doing bone density testing at age 60. 6. She was advised to return in one year for her annual well woman exam and as needed.
--- NOTE | 2023-05-05 18:25 | MM ---
Reason for Exam: Screening (asymptomatic). Last mammogram was performed 1 year(s) and 1 month(s) ago. Patient History: Menarche at age 16. First Full-Term at age 25. Postmenopausal. Breast cancer, left, age 51. Previous chest radiation therapy at age 51. Hormonal Contraceptives, starting at age 20 for 2 years. 01/15/2016, MG pre op needle loc LT - 2 on the Left side. 12/30/2015, High risk Core Biopsy on the left side. 12/30/2015, MG discontinued stereo core LT on the left side. Prior Study Comparison: 04/04/2020 Bilateral MG 3D screening mammo w/cad, [facility]. 04/07/2021 Bilateral MG 3D screening mammo w/cad, [facility]. 04/10/2022 Bilateral MG 3D diag mammo w/cad [facility], [facility]. Tissue Density: The breast tissue is heterogeneously dense. This may lower the sensitivity of mammography. Findings: Analyzed By CAD. Postsurgical and posttreatment changes left breast. Areas of asymmetric density on the right remain unchanged. There is no suspicious group of microcalcifications or new suspicious mass in either breast. Overall Assessment: Benign, BI-RAD 2 Management: Screening Mammogram of both breasts in 1 year. . Patient should continue monthly self-breast exams. A clinical breast exam by your physician is recommended on an annual basis. This exam should not preclude additional follow-up of suspicious palpable abnormalities. Electronically signed and approved by: Laverne Lewis M.D. Radiologist
== END ==
LOC: WWCWWP 12:24
PROVIDERS: ATTEND Obstetrics & Gynecology
DX: Z12.31 Encounter for screening mammogram for malignant neoplasm of breast (principal); R19.03 Right lower quadrant abdominal swelling, mass and lump; N95.0 Postmenopausal bleeding; K21.9 Gastro-esophageal reflux disease without esophagitis; D25.9 Leiomyoma of uterus, unspecified; Z85.3 Personal history of malignant neoplasm of breast; Z88.0 Allergy status to penicillin; Z88.1 Allergy status to other antibiotic agents; Z90.12 Acquired absence of left breast and nipple; Z88.8 Allergy status to other drugs, medicaments and biological substances
CPT/HCPCS: 77063; 77067

== ENCOUNTER → 2023-05-12 | Outpatient (CLI) | payer OTHER ==
--- NOTE | 2023-05-13 08:12 | CT ---
EXAMINATION TYPE: CT abdomen pelvis w con DATE OF EXAM: 05/12/2023 COMPARISON: Ultrasound dated 05/06/2023 HISTORY: Pelvic mass CT DLP: 521 mGycm CONTRAST: CT scan of the abdomen and pelvis is performed with Oral Contrast and with IV Contrast, patient injec diaz with 100ML mL of Isovue 300. FINDINGS: LUNG BASES-: Groundglass subpleural nodule within the lingula measuring 5.[address] chest recommended. No infiltrate. LIVER/GB: No calcified gallstones. 2 small to characterize lesion left hepatic lobe lateral segment measuring 5 mm on the left coccyx process. Additional cyst near the anterior abdominal 5%. Biliary t ree is of normal caliber. PANCREAS: No inflammation. No distinct mass. SPLEEN: No splenic enlargement. No lesion seen. ADRENALS: No nodule. No thickening. KIDNEYS/BLADDER: No hydronephrosis. No nephrolithiasis. No distinct renal mass. Urinary bladder g rossly unremarkable. BOWEL: Normal appendix. Normal bowel caliber. No inflammation. GENITAL ORGANS: There is a fat-containing mass left ovary measuring 6.6 x 7.4 cm with mural nodule f elt to reflect early tumor. There is also an adjacent 9.1 x 6.9 cm cystic lesion of the right ovary w ith internal septation and mild wall thickening. Neoplasm is not excluded. Recommend direct visualiza tion. Uterine calcifications noted may reflect small edematous change. The uterus is displaced from l eft to right. LYMPH NODES: No greater than 1cm abdominal or pelvic lymph nodes are appreciated. AORTA: No significant abnormality. OSSEOUS STRUCTURES: No significant abnormality is seen. OTHER: Greater omentum has a normal appearance at this time. IMPRESSION: 1. Complex cystic lesion felt to arise from the right ovary with internal septations and mild wall th ickening. No definite mural nodularity. While this could reflect a complex cyst, neoplasm is not excl uded. Direct visualization is recommended. 2. Left ovarian dermoid lesion. 3. Probable calcified small leiomyomatous change of the uterus. 4. Partially imaged Groundglass subpleural nodule within the lingula. CT of the chest is recommended for further evaluation.
--- NOTE | 2023-05-14 10:48 | P.PN ---
Progress Note - Text Progress Note Date: 05/14/[address] of the abdomen and pelvis findings from 05/12/23 with the patient by phone on 05/14/23. The findings show BL ovarian masses, possible left ovarian dermoid. It also showed a nodule in the lung. CA 19-9 was elevated and the CA125 and CEA tests were normal. With the bilateral ovarian masses, she has been referred to the gynecologic oncologist, Dr. Jalil Ho. She has an appointment to see him on May 18. These reports have been sent to his office. All of her questions were answered.
== END | disposition home or self-care (01) ==
LOC: RADCTMAIN 14:34
PROVIDERS: ATTEND Obstetrics & Gynecology
DX: N83.8 Other noninflammatory disorders of ovary, fallopian tube and broad ligament (principal); R91.1 Solitary pulmonary nodule; R19.09 Other intra-abdominal and pelvic swelling, mass and lump; Z78.0 Asymptomatic menopausal state
CPT/HCPCS: 74177; Q9967

== ENCOUNTER → 2023-08-27 | Outpatient (CLI) | payer OTHER ==
--- NOTE | 2023-08-27 16:10 | MR ---
EXAMINATION TYPE: MR chest wo con DATE OF EXAM: 08/27/2023 8:25 AM CLINICAL INDICATION:Female, 58 years old with history of R91.1 SOLITARY PULMONARY NODULE; [facility], Breast cancer, solitary pulmonary lung nodule, abnormal CT. COMPARISON: None TECHNIQUE: Multi planar, multi sequence imaging was obtained through the chest. IV Contrast: None FINDINGS: The lung parenchyma, mediastinum, and paraspinal regions included on the exam are grossly within norm al limits. No evidence of mediastinal adenopathy. Susceptibility artifact within the left breast and left axilla. IMPRESSION No definitive lung nodules visualized. MRI is very poor for evaluation of the lung parenchyma due to artifact from air. CT is recommended with low dose pulmonary nodule evaluation.
== END | disposition home or self-care (01) ==
LOC: RADMRIMAIN 07:17
PROVIDERS: ATTEND Family Medicine
DX: R91.1 Solitary pulmonary nodule (principal); R93.89 Abnormal findings on diagnostic imaging of other specified body structures; Z85.3 Personal history of malignant neoplasm of breast
CPT/HCPCS: 71550

== ENCOUNTER → 2024-04-24 | Outpatient (CLI) | payer OTHER ==
--- NOTE | 2024-04-25 20:02 | US ---
EXAMINATION TYPE: US abdomen complete DATE OF EXAM: 04/24/2024 COMPARISON: CT 05/12/2023 CLINICAL INDICATION: Female, 58 years old with history of R10.30 LOWER ABDOMINAL PAIN, UNSPECIFIED; TECHNIQUE: Multiple sonographic images of the abdomen are obtained. FINDINGS: EXAM MEASUREMENTS: Liver Length: 12.0 cm Gallbladder Wall: 0.1 cm CBD: 0.4 cm Spleen: 6.9 cm Right Kidney: 11.3 x 4.7 x 4.1 cm Left Kidney: 10.3 x 6.[address]ITY OFFICER NOTES: Pancreas: wnl Liver: Fatty sparring adjacent to gallbladder; otherwise WNL Gallbladder: wnl Evidence for sonographic Camejo's sign: No CBD: wnl Spleen: wnl Right Kidney: wnl Left Kidney: wnl Upper IVC: wnl Abd Aorta: wnl IMPRESSION: 1. No acute ultrasound abnormality of the abdomen
--- NOTE | 2024-04-25 20:04 | US ---
EXAMINATION TYPE: US pelvic limited DATE OF EXAM: 04/24/2024 COMPARISON: CT 05/12/2023 CLINICAL INDICATION: Female, 58 years old with history of R10.30 LOWER ABDOMINAL PAIN, UNSPECIFIED; P elvic pain x few years; Hx Fibroids and bilateral ovarian cysts (dermoid) resulting in complete hyste rectomy. Pain remains when patients bladder is full TECHNIQUE: . Transabdominal sonographic images of the pelvis were acquired. Transvaginal sonographi c images were not medically necessary Date of LMP: 10-11 years ago EXAM MEASUREMENTS: Uterus: Surgically absent cm Endometrial Stripe: Surgically absent cm Right Ovary: Surgically absent cm Left Ovary: Surgically absent cm Bilateral Adnexa: wnl Posterior cul-de-sac: wnl No abnormalities noted within pelvis, anterior bladder wall appears thickened, bilateral bladder jets seen. IMPRESSION: 1. Unremarkable postsurgical pelvic ultrasound
== END | disposition home or self-care (01) ==
LOC: RADUSWWP 08:24
PROVIDERS: ATTEND Family Medicine
DX: R10.30 Lower abdominal pain, unspecified (principal); N32.81 Overactive bladder
CPT/HCPCS: 76700; 76857

== ENCOUNTER → 2024-05-16 | Outpatient (CLI) | payer OTHER ==
[2024-05-16 16:01] VITALS: BP 135/87; PULSE 101; RESP 17; TEMP 98.4
--- NOTE | 2024-05-16 17:19 | P.HPOB ---
History of Present Illness H&P Date: 05/16/24 Chief Complaint: The patient is here for her routine gynecologic exam and ma mmogram. This is a 58-year-old G1, P1 with an LMP of 2019. The patient was found to have large bilateral complex pelvic masses by ultrasound. She was referred to Dr. Jalil Ho, the gynecologic oncologist. On 06/03/2023 the patient underwent a total laparoscopic hysterectomy with bilateral salpingo-oophorectomy. The patient states the findings were benign. No further treatment was needed. She did have worsening of her hot flashes after the BSO. She states she was placed on Zoloft by her PCP and this has helped somewhat. She is otherwise without gynecologic complaints. Review of Systems The patient has gained 8 pounds over the last year. She denies respiratory, cardiac, or G.I. problems. Past Medical History Past Medical History: Cancer, GERD/Reflux Additional Past Medical History / Comment(s): Left breast cancer with lumpectomy and radiation treatment in 2015. Rosacea, hx anemia. 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 History of Any Multi-Drug Resistant Organisms: None Reported Past Surgical History: Breast Surgery, Hysterectomy Additional Past Surgical History / Comment(s): Left lumpectomy 2015. hemorroidectomy x2. Colonoscopy 2021( next after 10yr), EGD. Total laparoscopic hysterectomy with BSO 2022. Past Anesthesia/Blood Transfusion Reactions: No Reported Reaction, Motion Sickness Past Psychological History: No Psychological Hx Reported Smoking Status: Never smoker Past Alcohol Use History: None Reported Past Drug Use History: None Reported Additional History: She has been to her female partner since 2017. This is her second marriage. 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 - Past Family History Father Family Medical History: Myocardial Infarction ([place]) Mother Family Medical History: Cancer Additional Family Medical History / Comment(s): Lung cancer. Brother(s) Family Medical History: Cancer, Myocardial Infarction ([place]) Additional Family Medical History / Comment(s): leukemia Medications and Allergies Home Medications Medication Instructions Recorded Confirmed Type Lansoprazole [Prevacid] 30 mg PO DAILY 06/07/18 05/16/24 History metroNIDAZOLE 0.75% CREAM 1 applic TOPICAL DIRECTED 09/05/19 05/16/24 History [Metrocream 0.75%] Rosuvastatin [Crestor] 10 mg PO DAILY 05/04/23 05/16/24 History Allergies Allergy/AdvReac Type Severity Reaction Status Date / Time cephalexin Allergy Rash/Hives Verified 05/16/24 15:39 clindamycin Allergy Rash/Hives Verified 05/16/24 15:39 levofloxacin [From Levaquin] Allergy Rash/Hives Verified 05/16/24 15:39 Penicillins Allergy Rash/Hives Verified 05/16/24 15:39 Exam Vital Signs Temp Pulse Resp BP Pulse Ox 05/16/24 15:39 98.4 F 101 H 17 135/87 95 Intake and Output 05/16/24 05/16/24 05/16/24 06:59 14:59 22:59 Other: Weight 75.296 kg Height 5 feet 2 inches, weight 166 pounds, BMI 30.4. This is a well-developed well-nourished white female who is alert and oriented times 3 in no acute distress. HEENT: Within normal limits. NECK: Supple without mass or thyromegaly. CHEST AND LUNGS: Clear to auscultation. HEART: Regular rate and rhythm. BREASTS: Are without mass or discharge. AXILLARY EXAM: Negative for adenopathy. BACK: Negative for CVA tenderness. ABDOMEN: Soft, nontender, without palpable masses. PELVIC EXAM: External genitalia appears normal mild atrophy. Vagina appears normal with mild atrophy. There is no evidence of prolapse. Bimanual examination is negative for mass, but there is mild to moderate tenderness in the vicinity of the vaginal cuff with bimanual examination as well as with vaginal cuff palpation with the vaginal hand alone. There is no lateral pelvic tenderness. RECTAL EXAM: Rectovaginal exam is negative for mass or tenderness and is negative for occult blood. EXTREMITIES: Nontender. IMPRESSION: 1. 58-year-old menopausal female status post TLH with BSO for benign reasons on 06/03/2023. 2. Mild to moderate pelvic tenderness in the vicinity of the vaginal cuff without palpable masses. Differential diagnosis will include vaginal cuff adhesions that may be bringing bowel to the vaginal cuff, ovarian remnant syndrome, or nongynecologic organ such as bowels that may be aggravated with bimanual examination without adhesions. I doubt this is urinary in nature. 3. History of left breast cancer status postlumpectomy and radiation therapy, with no evidence of recurrence on exam today. PLAN: 1. Pap smears have been discontinued. 2. Self breast awareness was discussed with the patient. We have also discussed symptoms associated with inflammatory breast cancer. 3. Screening mammogram will be done today. 4. Pelvic ultrasound was recommended and this will include a vaginal probe ultrasound, to further evaluate the pelvic and vaginal cuff tenderness noted on exam today. The order slip was given to the patient for this. If the ultrasound is unremarkable, consider conservative management since she is not complaining of any current pelvic discomfort. 5. The patient states she did have a follow-up on a possible lung nodule that was found with CT scan of the abdomen prior to her 2022 surgery for bilateral ovarian masses. She states she did undergo an MRI of the chest which was found to be benign. 6. She was advised to return in one year for her annual well woman exam and as needed.
--- NOTE | 2024-05-17 08:51 | MM ---
Reason for Exam: Screening (asymptomatic). Last screening mammogram was performed 12 month(s) ago. Patient History: Menarche at age 16. First Full-Term at age 25. Left ovary removed at age 57. Right ovary removed at age 57. Hysterectomy at age 57. Postmenopausal. Breast cancer, left, age 51. Previous chest radiation therapy at age 51. Hormonal Contraceptives, starting at age 20 for 2 years. 01/15/2016, MG pre op needle loc LT - 2 on the Left side. 12/30/2015, High risk Core Biopsy on the left side. 2015, Radiation Therapy on the left side. 12/30/2015, MG discontinued stereo core LT on the left side. Prior Study Comparison: 04/07/2021 Bilateral MG 3D screening mammo w/cad, [facility]. 04/10/2022 Bilateral MG 3D diag mammo w/cad [facility], [facility] 05/04/2023 Bilateral MG 3D screening mammo w/cad, [facility]. Tissue Density: The breasts are heterogeneously dense, which may obscure small masses. Findings: Analyzed By CAD. There is no suspicious group of microcalcifications or new suspicious mass in either breast. Overall Assessment: Benign, BI-RAD 2 Management: Screening Mammogram of both breasts in 1 year. . Patient should continue monthly self-breast exams. A clinical breast exam by your physician is recommended on an annual basis. This exam should not preclude additional follow-up of suspicious palpable abnormalities. Note on Vanda scores and lifetime risk: 1. A Vanda score greater than 3% is considered moderate risk. If this is the case, consider specialist referral to assess eligibility for a risk reducing agent. 2. If overall lifetime risk for the development of breast cancer is 20% or higher, the patient may qualify for future screening with alternating mammogram and breast MRI. Electronically signed and approved by: Christopher Alexandre M.D. Radiologis
== END ==
LOC: WWCWWP 15:28
PROVIDERS: ATTEND Obstetrics & Gynecology
DX: Z12.31 Encounter for screening mammogram for malignant neoplasm of breast (principal); R10.2 Pelvic and perineal pain; R19.00 Intra-abdominal and pelvic swelling, mass and lump, unspecified site; Z78.0 Asymptomatic menopausal state; Z85.3 Personal history of malignant neoplasm of breast; Z90.710 Acquired absence of both cervix and uterus; Z90.722 Acquired absence of ovaries, bilateral; Z92.3 Personal history of irradiation; Z98.890 Other specified postprocedural states; Z88.1 Allergy status to other antibiotic agents; Z88.0 Allergy status to penicillin
CPT/HCPCS: 77063; 77067